=== PATIENT | male | born 1990 | race Two or more races ===

== ENCOUNTER 2018-01-13 00:29 | Emergency (ER) | payer BC ==
[~2018-01-13] VITALS: Ht 172.7 cm; Wt 85.3 kg
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
[2018-01-13] MEDS ORDERED: IBUPROFEN600 MG ORAL (03:58)
[2018-01-13 04:08] VITALS: BP 126/77
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
== END 2018-01-13 04:03 | disposition home or self-care (01) ==
LOC: EMR 01:05
DX: S83.91XA Sprain of unspecified site of right knee, initial encounter (principal); V18.0XXA Pedal cycle driver injured in noncollision transport accident in nontraffic accident, initial encounter; Y93.55 Activity, bike riding; Y92.89 Other specified places as the place of occurrence of the external cause; R50.9 Fever, unspecified
CPT/HCPCS: 29530; 99283